=== PATIENT | female | born 1985 | race Hispanic/Latino ===

== ENCOUNTER 2017-12-04 21:09 | Inpatient (IN) | payer OTHER ==
[2017-12-04] MEDS ORDERED: Ringers Lactate 1,000 ML IV ONE (23:34)
[2017-12-04] MEDS ORDERED: BUTORPHANOL 1 MG/ML INJ ONE (23:57)
[2017-12-04] MEDS ORDERED: PROMETHAZINE 25 MG/ML VIAL ONE (23:58)
[2017-12-05] MEDS ORDERED: OXYTOCIN/LR 20 UNIT/1,000 ML BAG IV ONE (00:08)
[2017-12-05] MEDS ORDERED: METHYLERGONOVINE 0.2MG/ML AMP IM ONE ×2 (00:08→00:43)
[2017-12-05] MEDS ORDERED: LIDOCAINE 1% MPF 30 ML VIAL ONE (00:08)
[2017-12-05] MEDS ORDERED: CARBOPROST TROME 250 MCG/ML IM ONE ×3 (00:08→00:44)
[2017-12-05] MEDS ORDERED: Ringers Lactate 1,000 ML IV PRN (00:23)
[2017-12-05] MEDS ORDERED: BUTORPHANOL 1 MG/ML INJ IV PRN (00:23)
[2017-12-05] MEDS ORDERED: PROMETHAZINE 25 MG/ML VIAL IV ONE (00:41)
[2017-12-05 00:45] LABS: RPR Titer ND
[2017-12-05 00:47] LABS: Absolute Lymphocytes (CBC) 2.7 K/uL (0.7-4.9); Absolute Monocytes 0.8 K/uL (0.1-1.3); Absolute Neutrophil 7.9 K/uL (1.8-8.0); Basophils % 0.6 % (0-1.3); Eosinophils % 1.7 % (0-4.4); Hematocrit 40.8 % (36.0-45.0); Lymphocytes % 23.1 % (15.3-44.8); MCV 90.6 fL (80-100); Monocytes % 6.9 % (3.3-12.3)
[2017-12-05] MEDS ORDERED: Ringers Lactate 1,000 ML IV SCH (01:00)
[2017-12-05] MEDS ORDERED: OXYTOCIN/LR 20 UNIT/1,000 ML BAG IV SCH ×2 (01:00→02:00)
[2017-12-05] MEDS ORDERED: ONDANSETRON 4 MG (ODT) TAB PO PRN (01:21)
[2017-12-05] MEDS ORDERED: CARBOPROST TROME 250 MCG/ML IM PRN (01:21)
[2017-12-05] MEDS ORDERED: METHYLERGONOVINE 0.2MG/ML AMP IM PRN (01:21)
[2017-12-05] MEDS ORDERED: METHYLERGONOVINE 0.2 MG TAB PO PRN (01:21)
[2017-12-05] MEDS ORDERED: IBUPROFEN 200 MG TAB PO PRN (01:21)
[2017-12-05] MEDS ORDERED: ACETAMINOPHEN 500 MG TAB PO PRN (01:21)
--- NOTE | 2017-12-05 01:24 | P.BOP ---
Preoperative diagnosis: 39+ week Postoperative diagnosis: SCVD viable male infant Primary procedure: delivery Estimated blood loss: less than 300ml Complications: None Transferred to: Other ([id number]) Condition: Good
[2017-12-05 03:56] VITALS: BMI 26.0
--- NOTE | 2017-12-05 05:27 | PREOPHP ---
Date of Admission: 12/04/2017 History Of Present Illness: Ms. Goldman is a 32-year-old female, 4, para 2-0-1-2 at 39 plus weeks gestation. She is admitted in active labor. She was initially observed and noted to be 1 cm, progressed to 2.5 cm, and was admitted. She has now progressed to 5 cm. She denies rupture of membranes. Her contractions started earlier today. Infant has been active. Past Medical History: Please see record. Family History: Please see record. Review of Systems: She reports recent upper respiratory infection, which has been going through the community this past week, and both her and her had this. She denies any breast lumps. She denies any urine symptoms. has been active. She denies any significant vaginal bleeding or spotting. She denies diarrhea or constipation issues. Physical Examination: General: Reveals a pleasant female in mild discomfort. Neck: Supple without adenopathy or thyromegaly. Lungs: Clear. Cardiac: Regular rate and rhythm without murmurs. Breasts: Not examined. Abdomen: Estimated weight of 6 plus pounds. Pelvic: Cervix is now 5 cm dilated, 90+ percent effaced, vertex presentation and -1 station. Extremities: No cyanosis, clubbing, or edema. Impression: Term , active labor. Plan: The patient is admitted for delivery. TOMAS/MARIETTA Voice ID: [id number]
[2017-12-05] MEDS ORDERED: MEASLES,MUMPS,RUBELLA VAC 0.5ML SQVAC ONE (07:34)
--- NOTE | 2017-12-05 19:26 | OP ---
Surgeon: Victor Manuel Rodriguez MD Delivery Note: Ms. Goldman is a 32-year-old female, 4, para 2-0-1-2 at 39+ weeks gestation, admitted after initial observation with cervical change. She had a first stage of l abor of 4 hours, second stage of labor of 8 minute. She delivered by spontaneous controlled vaginal delivery a 6 pound 8 ounce male . After delayed cord clamping, this was clamped cut and the in [place] placed on mother's upper abdomen. Cord blood was obtained. The placenta was spontaneously expe lled and appeared to be intact. Intrauterine examination revealed no retained placental fragments. She received 1 mg of Stadol, 12.5 mg of Phenergan IV x1 for analgesia. Estimated total blood loss wa s less than 300 cc. The patient suffered no perineal lacerations at the time of delivery. TOMAS/MARIETTA Voice ID: [id number] Report ID: [id number]
[2017-12-05 23:26] LABS: RPR (Rapid Plasma Reagin) NON-REACT (NON-REACT)
[2017-12-06 04:01] VITALS: BP 108/58; TEMP 97.1
[2017-12-06] MEDS ORDERED: MEASLES,MUMPS,RUBELLA VAC 0.5ML SQVAC ONE (08:27)
[2017-12-07 20:08] LABS: HBsAG Nonreactive (Nonreactive)
== END 2017-12-06 09:10 | disposition home or self-care (01) | DRG 807 ==
LOC: L&D 21:09 → 2ND-WC 23:17
PROVIDERS: ADMIT Pediatrics; ATTEND Specialist
PROC: 10E0XZZ Delivery of Products of Conception, External Approach (ICD-10-PCS; principal; 2017-12-05)
DX: O80 Encounter for full-term uncomplicated delivery (principal); Z37.0 Single live birth; Z3A.39 39 weeks gestation of pregnancy
CPT/HCPCS: 36415; 85014; 85025; 86592; 87340; 90707; 99218; J0595; J2210; J2550; J2590